=== PATIENT | female | born 1935 | race Caucasian/White ===

== ENCOUNTER 2017-03-26 22:26 | Observation (INO) ==
[2017-03-26] MEDS ORDERED: EPINEPHRINE IM ONE (22:42)
[2017-03-26] MEDS ORDERED: BENADRYL IV ONE (22:42)
[2017-03-26] MEDS ORDERED: SOLU-MEDROL IV ONE (22:44)
--- NOTE | 2017-03-26 23:28 | PROVIDER DOCUMENTATION ---
This chart was entered by Hema Irwin Scribe, acting as scribe for Hema Rios MD. HPI-General Adult - General Chief Complaint: Shortness of Breath Stated Complaint: ALERGIC REACTION Time Seen by Provider: 03/26/17 22:40 Source: patient, family Allergies/Adverse Reactions: Patient Allergies Allergy/AdvReac Type Severity Reaction Status Date / Time No Known Allergies Allergy Verified 03/26/17 22:39 Home Medications: Home Medication List Medication Instructions Recorded Confirmed Last Taken Type Aspirin 81 mg PO DAILY 09/29/15 03/26/17 09/29/15 07:00 History LISINOpril [Prinivil] 10 mg PO DAILY 03/26/17 03/26/17 Unknown History Lisinopril/Hydrochlorothiazide 2 tab PO DAILY 03/26/17 03/26/17 Unknown History [Zestoretic 10-12.5 mg Tablet] Polyethylene Glycol 3350 [Miralax] 1 dose PO DAILY 03/26/17 03/26/17 Unknown History - History of Present Illness -Gen Adult Nature of Presenting Problems: 82 yo F presents to the ER with complaint of possible allergic reaction. Pt states she is SOB and has rash all over her body. Pt was seen here earlier today. Location of Pain/Injury: reports: generalized (rash) Quality of Pain: reports: none Severity: reports: mild Onset/Duration: reports: just prior to arrival Timing: reports: still present Associated Symptoms: reports: rash, shortness of breath Similar Symptoms Previously?: Yes Review of Systems - Adult - REVIEW OF SYSTEMS - ADULT Constitutional: denies: chills, fever Cardiovascular: denies: chest pain, palpitations Respiratory: reports: shortness of breath. denies: cough Gastrointestinal: denies: abdominal pain, nausea, vomiting Musculoskeletal: denies: back pain, neck pain Integumentary: reports: see HPI, rash All Other Systems: Reviewed and Negative Past History - Adult - PAST MEDICAL HISTORY-ADULT Review of Records: reports: Old Records Reviewed, Nursing Assessment Review, Medications Reviewed Cardiovascular: reports: HTN - PRIOR SURGERIES/PROCEDURES Surgical/Procedure History: reports: none - IMMUNIZATION STATUS Childhood Immunizations: See Nurse Assessment Flu Vaccine: See Nurse Assessment Physical Exam-General - PHYSICAL EXAM-ADULT Initial Vital Signs Reviewed: Yes - CONSTITUTIONAL General Appearance: appears well, alert, no apparent distress - NECK Neck: non-tender, full range of motion, supple - RESPIRATORY Respiratory: lungs clear, normal breath sounds - GASTROINTESTINAL (ABDOMEN) Abdominal Exam: normal bowel sounds, non tender, soft - MUSCULOSKELETAL Extremity: normal range of motion, non-tender, normal gait - SKIN Integumentary: erythema (generalized on stomach, arms), rash Progress - PLAN OF CARE/RESULTS Progress/Plan/Lab Results: Vital Signs - 8 hr 03/26/17 22:30 Temperature 97.0 F L Pulse Rate 104 H Respiratory Rate 26 H Blood Pressure 119/91 O2 Sat by Pulse Oximetry 94 L Orders Category Date Time Status Diphenhydramine [Benadryl] Med 03/26/17 22:42 Once 25 mg IV NOW ONE Epinephrine Med 03/26/17 22:42 Once 0.3 mg IM NOW ONE this is 2nd tx for similar sx in less than 12 hours, will admit for obs - REASSESSMENT Reassessment #1 Time Reassessed: 23:21 Status: improving Reassessment Comment: feels better, a little shaky, and lips still a little swollen - CONSULTS/PCP/HOSPITALIST Notification #1 *Consult/PCP/Hospitalist*: Carrillo Time Discussed: 23:26 Consult Disposition: Admit Departure - Departure Time of Disposition Decision: 23:27 DIAGNOSIS: Allergic reaction Qualifiers: Encounter type: subsequent encounter Qualified Code(s): T78.40XD - Allergy, unspecified, subsequent encounter Disposition: ADMITTED INPATIENT 09 Certified Medical Emergency: Emergent Condition: Good Referrals and Follow-Ups: Georgie Alicea MD [Primary Care Provider] - - Critical Care Note This patient required my direct & personal management of CC.: No Attestation - Physician/ LEONELA Attestation Patient care was provided by Advanced Practice Provider:: No This chart was documented by the indicated scribe, (Hema Irwin Scribe) and accurately reflects the services I performed and decisions made by me, Hema Rios MD, as attested by the provider's signature.
[2017-03-26] MEDS ORDERED: NS 1,000 ML IV ONE (23:30)
[2017-03-26] MEDS ORDERED: ZOFRAN PO PRN (23:30)
[2017-03-26] MEDS ORDERED: TYLENOL PO PRN (23:30)
[2017-03-26] MEDS: BENADRYL IV SCH (23:50)
[2017-03-27] MEDS: PEPCID PO SCH ×3 (00:22→23:19)
[2017-03-27] MEDS: BENADRYL IV SCH (05:05)
[2017-03-27] MEDS ORDERED: SOLU-MEDROL IV SCH (06:00)
[2017-03-27] MEDS ORDERED: ZOFRAN ODT PO PRN (07:26)
[2017-03-27] MEDS ORDERED: XANAX PO ONE (10:18)
[2017-03-27] MEDS: SINGULAIR PO SCH (11:25)
[2017-03-27] MEDS: SOLU-MEDROL IV SCH ×2 (11:26→23:19)
[2017-03-27] MEDS: MIRALAX PO SCH (11:27)
--- NOTE | 2017-03-27 16:10 | HISTORY AND PHYSICAL ---
CHIEF COMPLAINT: Shortness of breath. Allergic reaction. HISTORY OF PRESENT ILLNESS: This is an 82-year-old female who presented to the emergency room on 2 occasions complaining of shortness of breath, angioedema, a generalized rash and feeling like she had something stuck in her throat. She states that she has had these symptoms before over the past 6 years and she nor her daughter are able to tell me if she has had a workup. They just state that they do not know what is causing this. She was given epinephrine 0.3 IM with 125 of Solu-Medrol, 25 of Benadryl and Xanax in the emergency room, with resolution of symptoms in her throat Soft tissue neck x-ray revealed no radiopaque foreign body involving the soft tissues of the neck. She was admitted for further evaluation and treatment. PAST MEDICAL HISTORY: Hypertension. Hypothyroid. SOCIAL HISTORY: She denies tobacco, alcohol or illicit drug use. She does live with the children. ALLERGIES: No known drug allergies. HOME MEDICATIONS: Aspirin 81 mg daily, MiraLAX 17 g p.r.n. and Zestoretic 10/ 12.5 daily. REVIEW OF SYSTEMS: A 14 point review of systems is discussed with the patient with pertinent positives stated in the HPI. She denied dizziness, syncope, chest pain, palpitations, wheezing, cough, fever, chills, nausea, vomiting, diarrhea, constipation, black or bloody vomitus black or bloody stools, hematuria, dysuria, frequency, urgency. PHYSICAL EXAMINATION: VITAL SIGNS: Blood pressure is 124/66 with a heart rate of 88, respirations 16 , temperature is 98.3 degrees with oxygen saturations of 96-98% on room air. HEENT: Head is normocephalic, atraumatic. Pupils are equal, round, react to light. EOMs are intact. Sclerae are anicteric. Mucous membranes are moist. NECK: Supple with trachea midline. CARDIOVASCULAR: Regular rate and rhythm. S1 and S2 appreciated. PULMONARY: Breath sounds are clear with no increased work of breathing noted. GASTROINTESTINAL: Soft, nontender, nondistended with bowel sounds in all 4 quadrants. MUSCULOSKELETAL: Good range of motion of joints. SKIN: She does have a fine rash on her stomach. EXTREMITIES: No clubbing, cyanosis, or edema. Pulses are palpable x4. Calves are nontender. DIAGNOSTICS: Soft tissue neck x-ray revealed no radiopaque foreign body involving the soft tissues of the neck. ASSESSMENT AND PLAN: Allergic reaction. This cause is unknown. The patient has had these episodes multiple times over the last 6 years. She nor the daughter state any workup or follow up on this. She is on lisinopril and she states that she has been on this medication for greater than 10 years. We will continue steroids q.12 hours, Pepcid, will add Singulair , Benadryl p.r.n. and IV hydration. I did discuss with the patient and daughter that she will need allergy testing. This could be done on an outpatient basis. Further treatments pending hospital course. Dictated by STACEY Uriarte for Michael Vizcaino MD cc: STACEY Uriarte MD MTDD
[2017-03-27] MEDS: BENADRYL PO PRN ×2 (18:46→23:19)
[2017-03-28] MEDS: BENADRYL PO PRN ×2 (04:08→11:19)
[2017-03-28 07:57] VITALS: BP 152/70
[2017-03-28] MEDS: SINGULAIR PO SCH (08:17)
[2017-03-28] MEDS: MIRALAX PO SCH (08:17)
[2017-03-28] MEDS: SOLU-MEDROL IV SCH (11:19)
[2017-03-28] MEDS: PEPCID PO SCH (11:19)
--- NOTE | 2017-03-29 05:10 | DISCHARGE SUMMARY ---
ADMISSION DATE: 03/26/2017 DISCHARGE DATE: 03/28/2017 ADMISSION DIAGNOSIS: Allergic reaction. DISCHARGE DIAGNOSIS: Allergic reaction. SUMMARY OF FINDINGS: This is an 82-year-old female who presented to the emergency room on 2 occasions complaining of shortness of breath, angioedema, a generalized rash, and feeling like she had something stuck in her throat. States that she had these symptoms before over the past 6 years, and neither she or her daughter had been able to tell if she had a workup for allergies, just being told that they did not know what was causing this. In the emergency room, she was given epinephrine 0.3 IM, with 125 mg of Solu-Medrol, 25 mg of Benadryl, and Xanax in the emergency room. Soft tissue neck x-ray revealed no foreign body involving the soft tissues of the neck. She was admitted, placed on steroids q.12 hours, Pepcid, Singulair, Benadryl p.r.n., and IV hydration. States that she has been on lisinopril for greater than 10 years. It is felt that she does need allergy testing on an outpatient basis. She can now safely be discharged home today. DISCHARGE MEDICATIONS: She will have a new prescription for Singulair 10 mg p.o. daily, #30, with 2 refills, and a Medrol Dosepak to take as directed. She can continue her aspirin 81 mg p.o. daily and MiraLAX p.o. daily p.r.n. We will discontinue her lisinopril/hydrochlorothiazide until she can get in with her primary care physician to discuss allergy testing and further treatment options. DISCHARGE INSTRUCTIONS: The patient verbalizes understanding, and is to follow up with her primary care physician Dr. Georgie Alicea in 1 week. She will call for an appointment. TIME SPENT: 35 minutes. Dictated by STACEY Bai for Michael Vizcaino MD cc: STACEY Bai MD Lindsay Smith
== END 2017-03-28 12:25 | disposition home or self-care (01) ==
LOC: P.MEDSURG 22:26 → P.ED 22:26
PROVIDERS: ATTEND Family Medicine

== ENCOUNTER 2019-04-29 09:42 | Observation (INO) ==
[2019-04-29] MEDS ORDERED: NS 500 ML IV ONE (10:47)
[2019-04-29] MEDS ORDERED: BENADRYL IV ONE ×2 (10:47→21:21)
[2019-04-29] MEDS ORDERED: ZOFRAN IV ONE (10:47)
--- NOTE | 2019-04-29 10:53 | PROVIDER DOCUMENTATION ---
HPI-Neurological Disorder - General Chief Complaint: Headache Stated Complaint: NAUSEA Time Seen by Provider: 04/29/19 10:26 Source: patient Allergies/Adverse Reactions: Patient Allergies Allergy/AdvReac Type Severity Reaction Status Date / Time Penicillins Allergy Unknown Verified 04/29/19 10:45 Home Medications: Home Medication List Medication Instructions Recorded Confirmed Last Taken Type Aspirin 81 mg PO DAILY 09/29/15 03/30/17 03/26/17 08:00 History Polyethylene Glycol 3350 [Miralax] 1 dose PO DAILY PRN PRN 03/26/17 03/30/17 3 Days Ago History ~03/27/17 Methylprednisolone [Medrol Dosepak] 4 mg PO DIRECTED #1 package 03/28/17 03/30/17 03/29/17 16:00 Rx Montelukast [Singulair] 10 mg PO DAILY #30 tablet 03/28/17 03/30/17 Unknown Rx Hydroxyzine [Atarax] 50 mg PO TID PRN #10 tab 10/13/18 Unknown Rx Ondansetron HCl [Zofran] 4 mg PO Q4H PRN PRN #20 tab 10/13/18 Unknown Rx Prednisone 20 mg PO DAILY 6 Days #6 tab 10/13/18 Unknown Rx Meclizine [Antivert] 50 mg PO TID PRN #20 tab 04/28/19 Unknown Rx Ondansetron Odt [Zofran 4 mg Odt] 4 mg PO Q6H PRN PRN #20 tab 04/28/19 Unknown Rx - History of Present Illness-Neuro Nature of Presenting Problem: Patient is an 84 yowf who complains of occipital headache associated with nausea and dizziness since yesterday. Dizziness exacerbated by walking, states, "I can't walk straight." Was seen here last night for same and states s/s became worse this morning. She took Antivert this morning with no improvement in s/s. Denies syncope. Denies chest pain, SOB, fever, or any other symptoms. She is non-toxic in appearance. No vomiting today. Review of Systems - Adult - REVIEW OF SYSTEMS - ADULT Constitutional: reports: no symptoms reported. denies: chills, fever Eyes: reports: no symptoms reported Ears, Nose, Mouth & Throat: reports: no symptoms reported Cardiovascular: reports: no symptoms reported Respiratory: reports: no symptoms reported Gastrointestinal: reports: no symptoms reported Genitourinary: reports: no symptoms reported Musculoskeletal: reports: no symptoms reported Integumentary: reports: no symptoms reported Neurological: reports: see HPI, dizziness/vertigo, headache/migraines, loss of balance. denies: ataxia, numbness, paresthesia, seizure, slurred speech, syncope, tremors Psychiatric: reports: no symptoms reported Endocrine: reports: no symptoms reported Hematologic/Lymphatic: reports: no symptoms reported Allergic/Immunologic: reports: no symptoms reported All Other Systems: Reviewed and Negative Past History - Adult - PAST MEDICAL HISTORY-ADULT Review of Records: reports: Old Records Reviewed, Nursing Assessment Review, Medications Reviewed, Social history reviewed & non-contributory. Major Childhood Illnesses: reports: denies history Cardiovascular: reports: HTN Respiratory: reports: denies history Gastrointestinal: reports: denies history Obstetrical/Gynecological: reports: denies history Genitourinary: reports: denies history Musculoskeletal: reports: denies history Neurological: reports: denies history Endocrine/Immune: reports: denies history Other Conditions: reports: denies history - PRIOR SURGERIES/PROCEDURES Surgical/Procedure History: reports: none - IMMUNIZATION STATUS Childhood Immunizations: See Nurse Assessment Flu Vaccine: See Nurse Assessment - FAMILY HISTORY Family History: reviewed, not pertinent - SOCIAL HISTORY Smoking: non-smoker Physical Exam- Neurological - Physical Exam-Neuro Initial Vital Signs Reviewed: Yes General Appearance: alert, no apparent distress. negative: lethargic, slow to respond Eye Exam: bilateral eye: normal inspection, PERRL, EOMI HENMT: normocephalic/atraumatic, moist mucous membranes, normal ENT inspection, TMs normal, pharynx normal Head Injury: no evidence of injury. negative: Hernandez's Sign, raccoon eyes Neck: full range of motion, supple, normal inspection Respiratory: chest non-tender, lungs clear, normal breath sounds, no pleuratic chest pain, no respiratory distress, no accessory muscle use Cardiovascular: normal peripheral pulses, regular rate, rhythm, no edema, no gallop, no JVD, no murmur Abdominal Exam: normal bowel sounds, non tender, soft, no organomegaly, no pulsatile mass. 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 negative: abnormal eye position, abnormal gag reflex, abnormal pupil position, abnormal speech, facial asymmetry, facial droop, facial paresthesias, facial weakness Coordination/Gait: normal finger to nose Motor/Sensory: no motor deficit, no sensory deficit, no pronator drift. 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 negative: cyanosis, diaphoresis, jaundi ce, mottled, pallor Psych/Mental Status: normal mood/affect, normal thought content, normal thought process, oriented x 3 - Glascow Coma Scale Best Eye Response: (4) open spontaneously Best Verbal Response: (5) oriented Best Motor Response: (6) obeys commands Progress - PLAN OF CARE/RESULTS Progress/Plan/Lab Results: Vital Signs - 8 hr 04/29/19 10:13 04/29/19 12:10 Temperature 98.9 F Pulse Rate 111 H Pulse Rate [Sitting] 107 H Pulse Rate [Standing] 111 H Pulse Rate [Supine] 103 H Respiratory Rate 20 Blood Pressure 146/88 Blood Pressure [Sitting] 161/136 Blood Pressure [Standing] 163/98 Blood Pressure [Supine] 185/104 O2 Sat by Pulse Oximetry 95 Laboratory Results - last 24 hr 04/29/19 04/29/19 04/29/19 11:45 11:45 11:45 WBC 12.11 H RBC 5.64 H Hgb 16.1 H Hct 49.0 H MCV 86.9 MCH 28.5 MCHC 32.9 L RDW Std Deviation 13.9 Plt Count 235 MPV 10.3 Immature Gran % (Auto) 0.0 Neut % (Auto) 90.3 H Lymph % (Auto) 4.6 L [place] % (Auto) 4.5 Eos % (Auto) 0.5 Baso % (Auto) 0.1 Immature Gran # (Auto) 0.00 Neut # (Auto) 10.94 H Lymph # (Auto) 0.56 L [place] # (Auto) 0.54 Eos # (Auto) 0.06 Baso # (Auto) 0.01 Sodium 138 Potassium 3.9 Chloride 100 Carbon Dioxide 27 Anion Gap 11 BUN 19 Creatinine 0.7 Estimated GFR/1.73 m2 > 60 BUN/Creatinine Ratio 27 Glucose 96 Calculated Osmolality 278 Calcium 9.0 Total Bilirubin 1.14 H AST 17 ALT 11 Alkaline Phosphatase 79 Troponin T < 0.010 Total Protein 7.2 Albumin 4.4 Globulin 2.8 Albumin/Globulin Ratio 1.6 Urine Source Urine Color Urine Turbidity Urine pH Ur Specific [place] Urine Protein Ur Glucose (Stick) Ur Ketones (Stick) Urine Blood Urine Nitrite Urine Bilirubin Urobilinogen Dipstick Urine Leukocytes Urine WBC (Auto) Urine RBC (Auto) U Epithel Cells (Auto) Urine Bacteria (Auto) 04/29/19 14:21 WBC RBC Hgb Hct MCV MCH MCHC RDW Std Deviation Plt Count MPV Immature Gran % (Auto) Neut % (Auto) Lymph % (Auto) [place] % (Auto) Eos % (Auto) Baso % (Auto) Immature Gran # (Auto) Neut # (Auto) Lymph # (Auto) [place] # (Auto) Eos # (Auto) Baso # (Auto) Sodium Potassium Chloride Carbon Dioxide Anion Gap BUN Creatinine Estimated GFR/1.73 m2 BUN/Creatinine Ratio Glucose Calculated Osmolality Calcium Total Bilirubin AST ALT Alkaline Phosphatase Troponin T Total Protein Albumin Globulin Albumin/Globulin Ratio Urine Source CLEAN CATCH Urine Color YELLOW Urine Turbidity CLEAR Urine pH 6.0 Ur Specific [place] 1.008 Urine Protein NEGATIVE Ur Glucose (Stick) NEGATIVE Ur Ketones (Stick) NEGATIVE Urine Blood NEGATIVE Urine Nitrite NEGATIVE Urine Bilirubin NEGATIVE Urobilinogen Dipstick NORMAL Urine Leukocytes NEGATIVE Urine WBC (Auto) <10 Urine RBC (Auto) <10 U Epithel Cells (Auto) <10 Urine Bacteria (Auto) NEGATIVE Orders Category Date Time Status Cardiac Monitoring DIRECTED Care 04/29/19 10:49 Active ED: Orthostatic Vital Signs (E DIRECTED Care 04/29/19 10:47 Active Repeat Vital Signs .Heart Rate Care 04/29/19 15:35 Active Regular Diet Diet 04/29/19 14:50 Active CHEST-2 VIEWS [RAD] Stat Exams 04/29/19 10:47 Completed CBC WITH DIFF [HEME] Stat Lab 04/29/19 11:45 Completed COMPREHENSIVE METABOLIC PANEL [CHEM] Stat Lab 04/29/19 11:45 Completed TROPONIN T Stat Lab 04/29/19 11:45 Completed UA NIMS W/REFLEX CULT [URINALYSIS] Stat Lab 04/29/19 14:21 Completed 0.9% Sodium Chloride Inj [Ns] 500 ml Med 04/29/19 10:47 Discontinued IV 999 mls/hr Acetaminophen [Tylenol] Med 04/29/19 15:34 Discontinued 1,000 mg PO NOW ONE Diphenhydramine [Benadryl] Med 04/29/19 10:47 Discontinued 6.25 mg IV NOW ONE Ondansetron [Zofran] Med 04/29/19 10:47 Discontinued 4 mg IV NOW ONE EKG [EKG] Stat Ther 04/29/19 10:49 Ordered 1514- Admitting HPS paged. Pt in agreement with admission plan. Result Diagrams: 04/29/19 11:45 04/29/19 11:45 - REASSESSMENT Reassessment #1 Time Reassessed: 14:30 Status: unchanged (Pt states dizziness and headache have not improved since IV fluids and meds. Offered admission and pt agrees to be admitted. No change in neurological status since previous exam.) - XRAY 1 XRAY Study: Chest (IMPRESSION: No evidence of acute pathology by plain radiog raph. Electronically signed by Esteban Chambers 04/29/2019 1:18 PM) - CONSULTS/PCP/HOSPITALIST Notification #1 *Consult/PCP/Hospitalist*: ESA Reyes [employer] Time Discussed: 15:35 Reason/Comments: admission- dizziness, headache Consult Disposition: Admit (to Dr. Brice) Departure - Departure Date of Disposition Decision: 04/29/19 Time of Disposition Decision: 15:33 DIAGNOSIS: Dizziness Headache Qualifiers: Headache type: unspecified Headache chronicity pattern: unspecified pattern Intractability: intractable Qualified Code(s): R51 - Headache Disposition: ADMITTED INPATIENT 09 Certified Medical Emergency: Emergent Condition: Stable Referrals and Follow-Ups: Georgie Alicea MD [Primary Care Provider] - Discharge Education: Migraine Headache, [id number] - Critical Care Note This patient required my direct & personal management of CC.: No Attestation - Physician/ LEONELA Attestation Patient care was provided by Advanced Practice Provider:: Yes Advanced Practice Provider:: Gabrielle Collado Advanced Practice Provider documentation review:: The Mid-level provider documentation, treatment plan and medical decision making was reviewed by the physician who agrees with all treatment and medical decision making by the MLP. The physician spent face to face time with patient:: No Advanced Practice Provider documentation review:: Supervising physician onsite and consulted in the evaluation and care of this patient. The physician did not have a face to face encounter with the patient. - NIH Stroke Scale Level of Consciousness: 0-Alert LOC Questions (ask month and age): 0-Answers Both Correctly LOC Commands (ask to open & close eyes;make a fist, let go): 0-Obeys Both Correctly Best Gaze (horizontal eye movement): 0-Normal Visual (use finger movement, counting or visual threat): 0-No Visual Loss Facial Palsy (show teeth or raise eyebrows & close eyes tght: 0-Symmetrical Movement Motor Function-left arm: 0-Normal Motor Function-right arm: 0-Normal Motor Function-left le-Normal Motor Function-right le-Normal Limb Ataxia(aontfx-wsmv-exgocj, or heel to handy): 0-No Ataxia Sensory(pin prick to face,arms,trunk,legs-compare side/side): 0-No Ataxia Best Language(name item/read sentence.Ex-Down to Earth): 0-No Aphasia Dysarthria(Pt read words or say words Ex.Mama,Tip-Top,Thanks: 0-Normal Articulation Extinction and Inattention: 0-Normal Modified Jones Score Criteria: 0-no symptoms
[2019-04-29 12:08] LABS: BASO# 0.01 X1000 (0.0-0.2); BASO% 0.1 % (0.0-0.8); EOS# 0.06 X1000 (0.0-0.7); EOS% 0.5 % (0.0-10.0); HEMOGLOBIN 16.1 g/dL (12.0-16.0); LYMPH# 0.56 X1000 (1.2-3.4); LYMPH% 4.6 % (20.5-51.1); MCH 28.5 PG (27-31); MCHC 32.9 g/dL (33-37); MCV 86.9 FL (81-99); MONO# 0.54 X1000 (0.11-0.59); MONO% 4.5 % (1.7-9.3); MPV 10.3 FL (7.4-10.4); NEUT# 10.94 X1000 (1.4-6.5); NEUT% 90.3 % (42.2-75.2); PLT 235 X1000 (130-400); RBC 5.64 XMIL (4.2-5.4); RDW 13.9 % (11.5-14.5); WBC 12.11 X1000 (4.8-10.8)
[2019-04-29 13:13] LABS: AGAP 11; ALB/GLOB RATIO 1.6; ALBUMIN 4.4 g/dL (3.5-5.0); ALKALINE PHOSPHATASE 79 U/L (32-104); BUN 19 mg/dL (8-22); CHLORIDE 100 mmol/L (98-107); COSMO 278; CREATININE 0.7 mg/dL (0.5-0.9); ESTIMATED GFR > 60; GLUCOSE 96 mg/dL (70-104); GOT 17 U/L (10-30); GPT 11 U/L (10-36); POTASSIUM 3.9 mmol/L (3.5-5.1); SODIUM 138 mmol/L (136-145); TCO2 27 mmol/L (25-35); TOTAL BILIRUBIN 1.14 mg/dL (0.20-1.00); TOTAL PROTEIN 7.2 g/dL (6.3-8.3)
--- NOTE | 2019-04-29 13:21 | Diag Imaging Result Doc PS360 ---
EXAM: CHEST-2 VIEWS INDICATION: dizziness TECHNIQUE: 2 views COMPARISON: 03/23/2019 FINDINGS: The lungs are grossly clear. There is no discrete pleural fluid collection or pneumothorax. The cardiomediastinal silhouette and central vasculature are grossly unremarkable. IMPRESSION: No evidence of acute pathology by plain radiograph. Electronically signed by Esteban Chambers 04/29/2019 1:18 PM
[2019-04-29 14:30] LABS: URINE SOURCE CLEAN CATCH
[2019-04-29 14:36] LABS: BILIRUBIN URINE NEGATIVE (NEGATIVE); BLOOD URINE NEGATIVE (NEGATIVE); COLOR YELLOW; GLUCOSE URINE NEGATIVE (NEGATIVE); KETONE URINE NEGATIVE (NEGATIVE); LEUKOCYTES URINE NEGATIVE (NEGATIVE); NITRITE URINE NEGATIVE (NEGATIVE); PROTEIN URINE NEGATIVE (NEGATIVE); SP GRAVITY URINE 1.008; TURBIDITY URINE CLEAR (CLEAR); UROBILINOGEN URINE NORMAL (NORMAL)
[2019-04-29 14:37] LABS: UR EPITHELIAL CELLS <10 /HPF (<10); URINE BACTERIA NEGATIVE /HPF; URINE RBC <10 /HPF (<10); URINE WBC <10 /HPF (<10)
[2019-04-29] MEDS ORDERED: TYLENOL PO ONE (15:34)
[2019-04-29] MEDS ORDERED: FIORICET PO PRN (16:31)
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
[2019-04-29] MEDS ORDERED: ANTIVERT PO PRN (19:18)
[2019-04-29] MEDS ORDERED: MIRALAX PO PRN (19:18)
[2019-04-29] MEDS ORDERED: ZOFRAN IV PRN (19:18)
[2019-04-29] MEDS: SOLU-MEDROL IV SCH (19:41)
[2019-04-29] MEDS: NS 1,000 ML IV SCH (19:42)
[2019-04-29] MEDS: PRILOSEC PO SCH (21:53)
[2019-04-30] MEDS ORDERED: BENADRYL IV ONE (02:31)
[2019-04-30] MEDS: SOLU-MEDROL IV SCH (06:59)
--- NOTE | 2019-04-30 07:23 | EKG Report ---
Test Performed on : 04/30/2019 07:08:50 AM Test Reason : chest pain Blood Pressure : / mmHG Vent. Rate : 076 BPM Atrial Rate : 076 BPM P-R Int : 184 ms QRS Dur : 088 ms QT Int : 410 ms P-R-T Axes : 074 066 062 degrees QTc Int : 461 ms Normal sinus rhythm. Normal ECG When compared with ECG of 29-APR-2019 11:55, (Unconfirmed) Borderline criteria for Inferior infarct are no longer present Confirmed by Babs CHAUHAN, Azam Campo ([id number]) on 05/01/2019 10:01:21 AM
--- NOTE | 2019-04-30 07:54 | EKG Report ---
Test Performed on : 04/29/2019 11:55:01 AM Test Reason : dizziness Blood Pressure : / mmHG Vent. Rate : 097 BPM Atrial Rate : 097 BPM P-R Int : 178 ms QRS Dur : 094 ms QT Int : 356 ms P-R-T Axes : 063 062 021 degrees QTc Int : 452 ms Normal sinus rhythm. Possible Inferior infarct , age undetermined Abnormal ECG When compared with ECG of 28-APR-2019 01:05, (Unconfirmed) No significant change was found Unconfirmed Result
[2019-04-30] MEDS ORDERED: SODIUM CHLORIDE 0.9% INJ SCH (09:15)
[2019-04-30] MEDS: PEPCID IV SCH ×2 (09:25→21:11)
[2019-04-30] MEDS: PRILOSEC PO SCH ×2 (09:26→21:12)
[2019-04-30] MEDS: ASPIRIN PO SCH (09:26)
[2019-04-30] MEDS: BENADRYL IV PRN ×3 (09:26→21:12)
[2019-04-30] MEDS: SINGULAIR PO SCH (09:26)
[2019-04-30] MEDS: NS 1,000 ML IV SCH (09:30)
[2019-04-30] MEDS: ATIVAN PO PRN ×2 (14:50→21:12)
--- NOTE | 2019-04-30 16:03 | Diag Imaging Result Doc PS360 ---
MRI CERVICAL SPINE W/O CON - 04/30/2019 INDICATION: vertig headache COMPARISON: CT from 03/23/2019 FINDINGS: Alignment is anatomic. Vertebral body heights are preserved. The brainstem and cervical cord are normal in signal. Normal bone marrow signal. No fracture or subluxation. There is a diffuse concentric disc bulge at C5-C6. There is moderate central canal stenosis with some flattening of the anterior surface of the cord. There is also moderate bilateral neural foraminal stenosis. IMPRESSION: Disc bulge at C5-C6 with central canal and neural foraminal stenosis. No acute disease. Electronically signed by Pee Forbes 04/30/2019 4:00 PM
--- NOTE | 2019-04-30 16:22 | Diag Imaging Result Doc PS360 ---
MRI BRAIN W/WO CONTRAST - 04/30/2019 INDICATION: headache and vertigo COMPARISON: Head CT 04/27/2019 and 03/23/2019 FINDINGS: There is no area of restricted diffusion. The ventricles and sulci are normal in size and contour. No intracranial mass or hemorrhage. There is a prominent loop of the right anterior inferior cerebellar artery coiled along the vestibular cochlear nerve and entering the right internal auditory canal. There is moderate periventricular cerebral white matter chronic microvascular disease. No abnormal contrast enhancement. IMPRESSION: 1. Moderate cerebral white matter chronic microvascular disease. 2. Prominent loop of the right anterior inferior cerebellar artery coiled along the right vestibular cochlear nerve and partly entering the internal auditory canal. Electronically signed by Pee Forbes 04/30/2019 4:20 PM
--- NOTE | 2019-04-30 19:32 | CONSULTATION ---
DATE OF CONSULTATION: 04/30/2019 Ms. Middleton reports sudden onset of extreme room spinning dizziness 2 days ago. She had felt well up to that point. She had a sense that "I was in a whirlwind." She has a hard time estimating duration of symptoms but believes this was about 30 minutes. Her son was summoned and came to check on her. He found her sitting on the bed awake and alert reporting dizziness. There was not definite slurred speech. At times, she had her eyes closed and at other times, with eyes open, she thought she had a hard time seeing, but there was no specific or consistent vision disturbance. There was never diplopia. There was no focal neurologic feature. She never lost consciousness. She has not had prior similar symptoms. She has chronic poor hearing and there was no change in hearing during this episode or after the episode. Past history is reviewed as recorded in admission notes. Workup here includes lab showing WBC 12,000. Nothing else remarkable. Brain MRI shows expected age-related white matter ischemic change but nothing focal or acute, no bleeding. She has been afebrile. Heart rate was initially 90s-110s and then settled down to 70s-80s. Systolic blood pressures have ranged 140s to 180s. On exam, Ms. Middleton is awake, alert, attentive, appropriate. Speech is typical Austrian accented Marshallese and is otherwise unremarkable, not dysarthric. Language function is intact on bedside testing. Recent and remote memory are good. Head and neck are unremarkable. Visual zuniga are full. Facial motility is diminished bilaterally but symmetric. She has good lateral eye movements. She has slightly diminished upgaze typical for age. Gag is intact. Tongue is midline. Hearing is poor but she communicates well when she can hear me. Shoulder shrug is equal. Strength is normal in the arms and legs. Limb tone is symmetric on the right and left. I did not test her gait. She has some equivocal and inconsistent responses on sensory testing to pinprick and to light touch. Generally, she sometimes reports she senses sensation less in the left limbs than the right. Proprioception is good throughout. She did well on finger-nose testing bilaterally. IMPRESSION: Symptoms sound like sudden onset positional vertigo with relatively short course and stable findings now. I do not see evidence of increased intracranial pressure or primary neurologic problem. She has risk factors for cerebrovascular ischemic problems but I do not see evidence of acute stroke. The possibility of left-sided numbness is noted but findings were not consistent on exam and there was not a definite motor deficit. Negative imaging is reassuring. I do not have any suggestion from neurologic standpoint. I would continue meclizine if tolerated and if effective. I encouraged her to be aggressive with management of her blood pressure and other risk factors. ENT followup might be considered if these symptoms persist. I will be glad to see Ms. Middleton again if needed. Thanks for asking Neurology to see her. cc: MD Azam Cowart III, MD [facility] HOSPITALGiancarlo
[2019-04-30 20:23] LABS: BASO# 0.03 X1000 (0.0-0.2); BASO% 0.3 % (0.0-0.8); EOS# 0.03 X1000 (0.0-0.7); EOS% 0.3 % (0.0-10.0); HEMATOCRIT 43.9 % (37.0-47.0); HEMOGLOBIN 14.5 g/dL (12.0-16.0); IMM GRAN# 0.02 X1000 (0.0-0.04); IMM GRAN% 0.2 % (0.0-0.5); LYMPH% 21.4 % (20.5-51.1); MCH 29.1 PG (27-31); MONO# 1.39 X1000 (0.11-0.59); MONO% 12.9 % (1.7-9.3); NEUT% 64.9 % (42.2-75.2); PLT 215 X1000 (130-400); RBC 4.99 XMIL (4.2-5.4); WBC 10.77 X1000 (4.8-10.8)
[2019-04-30 20:49] LABS: AGAP 14; ALB/GLOB RATIO 1.7; ALBUMIN 3.8 g/dL (3.5-5.0); ALKALINE PHOSPHATASE 77 U/L (32-104); BUN 17 mg/dL (8-22); CALCIUM 8.8 mg/dL (8.8-10.2); CHLORIDE 106 mmol/L (98-107); COSMO 284; CREATININE 0.8 mg/dL (0.5-0.9); ESTIMATED GFR > 60; GLUCOSE 88 mg/dL (70-104); GOT 13 U/L (10-30); GPT 8 U/L (10-36); MAGNESIUM 1.8 mg/dL (1.5-2.7); POTASSIUM 3.8 mmol/L (3.5-5.1); SODIUM 142 mmol/L (136-145); TCO2 22 mmol/L (25-35); TOTAL BILIRUBIN 0.34 mg/dL (0.20-1.00)
--- NOTE | 2019-04-30 21:29 | PROGRESS NOTE ---
DATE: 04/30/2019 SUBJECTIVE: Patient admitted complaining of vertigo and headache. MRI of the head and spine was done and was really pretty unremarkable. I appreciate Dr. Cisse evaluating. She has had dizziness for a couple days, felt like she would roll in, and then complained of headache, and seemed to have multiple areas of source in the back of her neck, behind her left ear. No evidence of any increased intracranial pressure or primary neurologic findings. She has some risk factors for cerebrovascular ischemia. Do not see any evidence of stroke. Patient has not had any headaches today. She was wanting to see what her MRI was and I think she was hoping to go home. OBJECTIVE: Vital Signs: Blood pressure looks like it is doing well. She is afebrile, temperature 97.4 degrees, pulse 84, respirations 18, blood pressure 160/77. Eyes: Pupils are equal. Lungs: Clear in all lung zuniga. Cardiovascular: Regular rhythm and rate without murmur or S3. Orthostatic blood pressures. I do not see any true orthostasis. Blood pressure is running a little bit high. We put her back on her blood pressure medicine. She will monitor through the night. Hopefully, she can go home in the morning. cc: Azam Brice MD
[2019-05-01] MEDS: ATIVAN PO PRN (00:36)
[2019-05-01] MEDS ORDERED: HALDOL IV ONE (02:55)
[2019-05-01] MEDS: NS 1,000 ML IV SCH (05:02)
[2019-05-01] MEDS: PRILOSEC PO SCH ×2 (08:19→22:00)
[2019-05-01] MEDS: ASPIRIN PO SCH (08:19)
[2019-05-01] MEDS: SINGULAIR PO SCH (08:19)
[2019-05-01] MEDS: PEPCID IV SCH ×2 (08:21→22:00)
[2019-05-02] MEDS: NS 1,000 ML IV SCH (03:33)
[2019-05-02 07:54] VITALS: BP 166/82
[2019-05-02] MEDS: PRILOSEC PO SCH (09:24)
[2019-05-02] MEDS: ASPIRIN PO SCH (09:24)
[2019-05-02] MEDS: SINGULAIR PO SCH (09:24)
[2019-05-02] MEDS: PEPCID IV SCH (10:25)
--- NOTE | 2019-05-02 12:24 | PROGRESS NOTE ---
DATE: 05/02/2019 Ms. Middleton has not had any more significant dizziness. I observed her standing and then walking, pushing her IV pole, and she appears fairly steady with gait. She has not had any more headache. She had some restlessness with likely agitated confusion overnight a few nights ago. Son was summoned to the hospital to help settle her down, and still it took several hours for her to become calm. She has been calm today. Son reports only minor forgetfulness at baseline prior to this admission, and he believes this was expected level of forgetfulness for her age. There is not history of any truly serious incident caused by her forgetting. She lives at home with another son. The son present now plans to take her to his home for a while after discharge. We discussed possibility that she might have a mild cognitive impairment syndrome which would predispose her to encephalopathy with hospitalization. He will be on the lookout for evidence of increased forgetfulness, and he will make sure that she is kept safe. If she does not seem to be back to baseline cognitively, further evaluation would be warranted, likely as an outpatient. I will be glad to see her again, or her primary clinic might manage that. Eventually, cholinesterase inhibitor trial might be considered. Thanks for asking Neurology to see Ms. Middleton. cc: MD SAMANTHA Cowart III
[2019-05-02] MEDS ORDERED: TYLENOL PO PRN (15:01)
--- NOTE | 2019-05-07 16:42 | ED EKG INTERP ---
This chart was entered by Juan Rebollar Scribe, acting as scribe for Abram Estrada MD. EKG Interpretation - EKG Time of EKG reading by physician:: 11:55 EKG Read and Signed by:: Abram Estrada EKG Interpretation (*Must complete 3 of following elements*): Abnormal Rate: 97 Rhythm: NSR Comments: possible inferior inrarct age undetermined Attestation - Physician/ LEONELA Attestation Patient care was provided by Advanced Practice Provider:: Yes Advanced Practice Provider:: Gabrielle Collado Advanced Practice Provider documentation review:: The Mid-level provider documentation, treatment plan and medical decision making was reviewed by the physician who agrees with all treatment and medical decision making by the MLP. The physician spent face to face time with patient:: No Advanced Practice Provider documentation review:: Supervising physician onsite and consulted in the evaluation and care of this patient. The physician did not have a face to face encounter with the patient. This chart was documented by the indicated scribe, (Juan Rebollar Scribe) and accurately reflects the services I performed and decisions made by me, Abram Estrada MD, as attested by the provider's signature.
--- NOTE | 2019-05-14 20:16 | DISCHARGE SUMMARY ---
ADMISSION DATE: 04/29/2019 DISCHARGE DATE: 05/02/2019 FINAL DISCHARGE DIAGNOSES: 1. Metabolic encephalopathy. 2. Vertigo. 3. Hypertension. 4. Hypothyroidism. 5. Chronic headache. 6. Chronic constipation. 7. Vitamin D deficiency. CONSULTATIONS: Neurology consultation with Dr. Cisse. IMAGING: Brain MRI performed on 04/30/2019 that revealed moderate cerebral white matter chronic microvascular disease. HOSPITAL COURSE: Ms. Middleton is an 84-year-old female with a history of multiple medical problems who presented to the ER with dizziness and headache. The patient was admitted to the hospitalist service and Neurology was consulted. The patient underwent a brain MRI that revealed moderate cerebral white matter chronic microvascular disease. Also, a cervical spine MRI was done that revealed disk bulge at C5-C6. 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 The patient continued to improve clinically and was cleared for discharge on 05/02/2019. DISCHARGE MEDICATIONS: 1. Aspirin 81 mg p.o. daily. 2. Singulair 10 mg oral daily. 3. Atarax 50 mg oral 3 times a day p.r.n. 4. Zofran 4 mg oral every 6 hours p.r.n. for nausea. 5. Antivert 50 mg oral 3 times a day p.r.n. 6. Vitamin D2 50,000 units oral every Tuesday. 7. Synthroid 25 mcg oral daily. 8. Linzess 72 mcg oral daily. 9. Lisinopril/hydrochlorothiazide 1 tab oral daily. DISCHARGE DIET: Low-sodium diet. ACTIVITY: As tolerated. FOLLOWUP INSTRUCTIONS: The patient has been advised to follow up with her primary care physician in 1 week. The patient will also need to follow up with Dr. Cisse as scheduled by his clinic. cc: Juliann King MD
== END 2019-05-02 16:03 | disposition home or self-care (01) ==
LOC: 4N 09:42 → ED 09:42 → SUATTDRO 18:40
PROVIDERS: ATTEND Internal Medicine
CPT/HCPCS: 70553; 71020; 71046; 72141; 80053; 81001; 83735; 84436; 84443; 84484; 85025; 93005; 93010; 96374; 96375; 96376; 97162; 97530; 99285; A9270; A9579; G0378; J1200; J1630; J2405; J2930; J7030; J7040; S0028